=== PATIENT | male | born 1935 | race Two or more races ===

== ENCOUNTER 2017-06-21 21:09 | Inpatient (IN) | payer OTHER ==
[~2017-06-21] VITALS: Ht 182.9 cm; Wt 106.6 kg
[~2017-06-21 21:09] MED LIST: ARICEPT10 MG; AVODART0.5 MG; CLOPIDOGREL BIS75 MG; COUMADIN5 MG PO; GLUCOPHAGE XR500 MG; HYZAAR 100-121 UDTAB; KEPPRA500 MG PO; METOPROLOL SUC100 MG; NAMENDA10 MG; RISPERDAL0.25 MG; SIMVASTATIN20 MG; ZOLOFT50 MG; ZoCOR 20MG TABLET PO
== END 2017-07-04 15:09 | DRG 872 ==
LOC: ER 21:09 → MEDJ 06-22 10:44 → MEDI 06-22 10:44 → MEDJ 06-22 17:49
PROC: B246ZZZ Ultrasonography of Right and Left Heart (ICD-10-PCS; 2017-06-22)
PROC: B345ZZZ Ultrasonography of Bilateral Common Carotid Arteries (ICD-10-PCS; 2017-06-22)
PROC: B348ZZZ Ultrasonography of Bilateral Internal Carotid Arteries (ICD-10-PCS; 2017-06-22)
PROC: 8E0ZXY6 Isolation (ICD-10-PCS; 2017-06-22)
PROC: B030ZZZ Magnetic Resonance Imaging (MRI) of Brain (ICD-10-PCS; 2017-06-22)
PROC: 4A00X4Z Measurement of Central Nervous Electrical Activity, External Approach (ICD-10-PCS; principal; 2017-06-23)
PROC: BR39ZZZ Magnetic Resonance Imaging (MRI) of Lumbar Spine (ICD-10-PCS; 2017-06-24)
PROC: B246ZZ4 Ultrasonography of Right and Left Heart, Transesophageal (ICD-10-PCS; 2017-07-02)
DX: A41.01 Sepsis due to Methicillin susceptible Staphylococcus aureus (principal); N39.0 Urinary tract infection, site not specified; I69.351 Hemiplegia and hemiparesis following cerebral infarction affecting right dominant side; G40.89 Other seizures; I50.30 Unspecified diastolic (congestive) heart failure; R41.82 Altered mental status, unspecified; G30.8 Other Alzheimer's disease; F02.80 Dementia in other diseases classified elsewhere, unspecified severity, without behavioral disturbance, psychotic disturbance, mood disturbance, and anxiety; E11.9 Type 2 diabetes mellitus without complications; I11.0 Hypertensive heart disease with heart failure; H10.33 Unspecified acute conjunctivitis, bilateral; I25.10 Atherosclerotic heart disease of native coronary artery without angina pectoris; R55 Syncope and collapse; B95.61 Methicillin susceptible Staphylococcus aureus infection as the cause of diseases classified elsewhere; M51.36 Other intervertebral disc degeneration, lumbar region; G25.0 Essential tremor; I65.23 Occlusion and stenosis of bilateral carotid arteries
CPT/HCPCS: 70544; 72148

== ENCOUNTER 2017-10-17 11:19 | Outpatient (CLI) | payer OTHER | END 2017-10-17 15:00 | disposition home or self-care (01) | LOC: MRI 11:19 | DX: G31.89 Other specified degenerative diseases of nervous system (principal); I67.89 Other cerebrovascular disease; R41.3 Other amnesia; R91.8 Other nonspecific abnormal finding of lung field | CPT/HCPCS: 70551 ==

== ENCOUNTER 2018-12-21 10:12 | Outpatient (CLI) | payer OTHER ==
[~2018-12-21 10:12] MED LIST changes: +ARICEPT10 MG PO; +HYZAAR 100-12.1 EACH; -HYZAAR 100-121 UDTAB; +KEFLEX500 MG PO; +OSEL75CA PO; +XOPENEX0.63 MG/3 IH
== END 2018-12-21 13:04 | disposition home or self-care (01) ==
LOC: SONOGRAMA 10:12
DX: R31.0 Gross hematuria (principal)

== ENCOUNTER 2019-04-09 16:51 | Inpatient (IN) | payer OTHER ==
[~2019-04-09] VITALS: Ht 172.7 cm; Wt 90.7 kg
[2019-04-09] MEDS ORDERED: LOSARTAN (17:35)
[2019-04-09] MEDS ORDERED: [UNRECOGNIZED DRUG - OTHER] (17:36)
[2019-04-14] MEDS ORDERED: LOSARTAN POTASS50 MG PO (11:24)
[2019-04-14] MEDS ORDERED: AMLODIPINE BESYL5 MG PO (11:24)
[2019-04-14] MEDS ORDERED: KEPPRA500 MG PO (11:25)
[2019-04-14] MEDS ORDERED: VITAMIN B-121000 MCG PO (11:25)
[2019-04-14] MEDS ORDERED: TAMS0.4C PO (11:26)
== END 2019-04-14 17:39 | disposition home health service (06) | DRG 871 ==
LOC: ER 16:51 → MEDI 04-10 11:13 → SURH 04-10 11:13 → SEC-K 04-10 11:13 → SURH 04-10 15:26 → MEDI 04-12 16:37
PROVIDERS: ADMIT Internal Medicine Cardiovascular Disease
PROC: BW40ZZZ Ultrasonography of Abdomen (ICD-10-PCS; principal; 2019-04-10)
PROC: 0T9B70Z Drainage of Bladder with Drainage Device, Via Natural or Artificial Opening (ICD-10-PCS; 2019-04-10)
DX: A41.9 Sepsis, unspecified organism (principal); I50.23 Acute on chronic systolic (congestive) heart failure; N39.0 Urinary tract infection, site not specified; I69.351 Hemiplegia and hemiparesis following cerebral infarction affecting right dominant side; Q61.02 Congenital multiple renal cysts; G30.0 Alzheimer's disease with early onset; F02.80 Dementia in other diseases classified elsewhere, unspecified severity, without behavioral disturbance, psychotic disturbance, mood disturbance, and anxiety; I25.10 Atherosclerotic heart disease of native coronary artery without angina pectoris; I11.0 Hypertensive heart disease with heart failure; R31.0 Gross hematuria; E11.9 Type 2 diabetes mellitus without complications; Z79.4 Long term (current) use of insulin

== ENCOUNTER 2019-11-27 18:36 | Emergency (ER) | payer OTHER ==
[~2019-11-27] VITALS: Ht 172.7 cm; Wt 81.6 kg
[~2019-11-27 18:36] MED LIST changes: +AMLODIPINE BESYL5 MG PO; +LOSARTAN; +LOSARTAN POTASS50 MG PO; +TAMS0.4C PO; +VITAMIN B-121000 MCG PO; +[UNRECOGNIZED DRUG - OTHER]
[2019-11-27] MEDS ORDERED: NAMENDA5 MG (18:40)
[2019-11-27] MEDS ORDERED: HYZAAR 100-12.1 EACH (18:40)
== END 2019-11-27 22:32 | disposition home or self-care (01) ==
LOC: ER
DX: N30.81 Other cystitis with hematuria (principal); R10.84 Generalized abdominal pain

== ENCOUNTER 2024-01-07 16:20 | Inpatient (IN) | payer OTHER ==
[~2024-01-07] VITALS: Ht 182.9 cm; Wt 108.9 kg
[~2024-01-07 16:20] MED LIST changes: +AFRIN15 M1 NASAL; +CELEBREX100 MG PO; +FLONASE ALLERG9.9 ML NASAL; +LOSARTAN-HCTZ1 EAC2; +METOPROLOL SUCC25 MG; +NAMENDA5 MG; +SERTRALINE HCL50 MG
[2024-01-07] MEDS ORDERED: PLAVIX75 MG (16:29)
[2024-01-07] MEDS ORDERED: CHILDREN'S ASPI81 MG (16:29)
[2024-01-07] MEDS ORDERED: GLUMETZA500 MG (16:29)
[2024-01-07] MEDS ORDERED: 0.9 % SODIUM CHLORIDE 1,000 ML IV SCH ×2 (16:45→19:30)
[2024-01-07 17:05] LABS: HEMATOCRIT 30.1 % (39.0-48.0); HEMOGLOBIN 10.3 g/dL (13-16.00); MEAN CORPUSCULAR HEMOGLOBIN 30.6 pg (27.00-32.0); PLATELET COUNT 223 K/uL (150-450); RED BLOOD COUNT 3.35 M/uL (4.00-6.00); RED CELL DISTRIBUTION WIDTH 15.5 % (11.5-14.5)
[2024-01-07 17:29] LABS: INR 1.06; PARTIAL THROMBOPLASTIN TIME 25.1 SECONDS (22.0-34.0); PROTHROMBIN TIME 11.1 SECONDS (9.0-11.5)
[2024-01-07 17:33] LABS: ALBUMIN 2.6 gm/dL (3.4-5.0); BILIRUBIN TOTAL 0.22 mg/dL (0.3-1.2); BILIRUBIN,CONJUGATED 0.1 mg/dL (0.0-0.2); BILIRUBIN,UNCONJUGATED 0.12 mg/dL (0.0-0.6); CALCIUM 9.9 mg/dL (8.5-10.1); CREATININE SERUM 3.2 mg/dL (0.70-1.30); GFR 18.38; POTASSIUM 5.18 mEq/L (3.5-5.1); TOTAL PROTEIN 7.6 gm/dL (6.4-8.2)
[2024-01-07 18:14] LABS: PH,URINE 6.5 (5.0-8.0); URINE APPEARANCE Cloudy; URINE BILIRRUBIN Negative (NEGATIVE); URINE BLOOD Large; URINE COLOR Yellow; URINE GLUCOSE Negative (NEGATIVE); URINE KETONE Negative (NEGATIVE); URINE LEUKOCYTE Moderate; URINE NITRATE Negative; URINE UROBILINOGEN 0.2 E.U./dl
[2024-01-07 18:15] LABS: URINE EPITHELIAL CELLS 4.1 uL (0.0-38.8); URINE WBC 269.3 uL (0.0-23.2)
[2024-01-07 18:23] LABS: URINE CAST 0.61 uL (0.0-1.40); URINE PROTEIN 100 (NEGATIVE)
[2024-01-07] MEDS ORDERED: IPRATROPIUM BROMIDE 0.5 MG/2.5 ML AMPUL.NEB IH SCH (19:27)
[2024-01-07] MEDS ORDERED: PIPERACILLIN/TAZOBACTAM SODIUM 2.25 GM in 0.9 % SODIUM CHLORIDE 50 ML IV SCH (19:29)
[2024-01-07] MEDS ORDERED: CEFTRIAXONE SODIUM 1,000 MG VIAL IV ONE (19:30)
[2024-01-07] MEDS ORDERED: INSULIN LISPRO 1,000 UNIT/10 ML UNITS SUBCUTANEO PRN (19:30)
[2024-01-07] MEDS ORDERED: ACETAMINOPHEN 500 MG GEL..CAP PO PRN (19:30)
[2024-01-07] MEDS ORDERED: DEXTROSE 50 % IN WATER 0.5 G/ML DISP.SYRIN IV PRN (19:30)
[2024-01-07] MEDS ORDERED: CEFTRIAXONE SODIUM 1,000 MG VIAL ONE (19:31)
[2024-01-07] MEDS ORDERED: 0.9 % SODIUM CHLORIDE 500 ML IV ONE (19:45)
[2024-01-07] MEDS ORDERED: LACTULOSE 10 G/15 ML ML PO ONE (19:45)
[2024-01-07] MEDS ORDERED: ONDANSETRON HCL 4 MG in 0.9 % SODIUM CHLORIDE 50 ML IV PRN (19:45)
[2024-01-07 20:50] LABS: MAGNESIUM 2.4 mg/dL (1.8-2.4); PHOSPHOROUS 3.3 mg/dL (2.5-4.9)
[2024-01-07 20:58] LABS: C-REACTIVE PROTEIN 5.69 MG/DL (0.00-0.29)
[2024-01-07 21:54] LABS: ABG PH 7.437 (7.35-7.45); ABG PO2 79.6 mmHg (80-100); ABG pCO2 30.4 mmHg (35-45); BASE EXCESS -2.9 mmol/l; Tco2 20.9 mmol/l; allen test SATISFACTORY; o2 21 %; puncture site RADIAL LEFT
[2024-01-08] MEDS ORDERED: ENALAPRILAT DIHYDRATE 1.25 MG/ML VIAL IV PRN (02:15)
[2024-01-08 04:59] LABS: CALCIUM 9.6 mg/dL (8.5-10.1); CREATININE SERUM 2.67 mg/dL (0.70-1.30); GFR 22.65; POTASSIUM 4.52 mEq/L (3.5-5.1)
[2024-01-08] MEDS ORDERED: ASPIRIN 81 MG TAB.CHEW PO SCH (09:00)
[2024-01-08] MEDS ORDERED: FAMOTIDINE/PF 20 MG in 0.9 % SODIUM CHLORIDE 8 ML IV PUSH SCH (09:00)
[2024-01-08] MEDS ORDERED: LevETIRAcetam 500 MG TAB. PO SCH (09:00)
[2024-01-08] MEDS ORDERED: CLOPIDOGREL BISULFATE 75 MG TABLET PO SCH (09:00)
[2024-01-08] MEDS ORDERED: SODIUM CHLORIDE 0.45 % 1,000 ML IV SCH (15:30)
[2024-01-08] MEDS ORDERED: hydrALAZINE HCL 20 MG VIAL IV PRN (15:45)
[2024-01-08] MEDS ORDERED: DONEPEZIL HCL 10 MG TABLET PO SCH (17:00)
[2024-01-08] MEDS ORDERED: DOXYCYCLINE HYCLATE 100MG IV SCH (21:00)
[2024-01-09 04:56] LABS: HEMATOCRIT 30.3 % (39.0-48.0); HEMOGLOBIN 10.3 g/dL (13-16.00); MEAN CELL VOLUME 87.6 fL (80.0-100.00); MEAN CORPUSCULAR HEMOGLOBIN 29.7 pg (27.00-32.0); MEAN CORPUSCULAR HGB CONC 33.9 g/dl (32.0-36.0); PLATELET COUNT 205 K/uL (150-450); RED BLOOD COUNT 3.45 M/uL (4.00-6.00); RED CELL DISTRIBUTION WIDTH 15.6 % (11.5-14.5)
[2024-01-09 05:17] LABS: ALBUMIN 2.3 gm/dL (3.4-5.0); CALCIUM 9.4 mg/dL (8.5-10.1); GFR 33.96; PHOSPHOROUS 2.8 mg/dL (2.5-4.9); POTASSIUM 3.87 mEq/L (3.5-5.1)
[2024-01-09 05:21] LABS: CALCIUM 9.5 mg/dL (8.5-10.1); CREATININE SERUM 1.88 mg/dL (0.70-1.30); GFR 33.54; POTASSIUM 3.91 mEq/L (3.5-5.1)
[2024-01-09 05:23] LABS: CREATININE SERUM 1.9 mg/dL (0.70-1.30)
[2024-01-09 06:31] LABS: MYCOPLASMA PNEUMONIAE IGM NON REACTIVE (NO REACTIVE)
[2024-01-09] MEDS ORDERED: DEXTROSE 5 % IN WATER 1,000 ML IV SCH (07:15)
[2024-01-09] MEDS ORDERED: METOPROLOL SUCCINATE 50 MG TAB.SR.24H PO SCH (09:00)
[2024-01-10 08:04] LABS: ALBUMIN 2.4 gm/dL (3.4-5.0); CALCIUM 9.4 mg/dL (8.5-10.1); CREATININE SERUM 1.41 mg/dL (0.70-1.30); GFR 47.33; PHOSPHOROUS 2.7 mg/dL (2.5-4.9); POTASSIUM 3.26 mEq/L (3.5-5.1)
[2024-01-10 08:08] LABS: CALCIUM 9.5 mg/dL (8.5-10.1); CREATININE SERUM 1.38 mg/dL (0.70-1.30); GFR 48.52; POTASSIUM 3.31 mEq/L (3.5-5.1)
[2024-01-10] MEDS ORDERED: POTASSIUM CHLORIDE IN WATER 100 ML IV SCH (09:00)
[2024-01-10] MEDS ORDERED: hydrALAZINE HCL 25 MG TABLET PO SCH (09:00)
[2024-01-10] MEDS ORDERED: DIPHENHYDRAMINE HCL 50 MG/ML VIAL 1ML IV PRN (18:00)
[2024-01-10] MEDS ORDERED: PIPERACILLIN/TAZOBACTAM SODIUM 3.375 GM in DEXTROSE 5 % IN WATER 100 ML IV SCH (18:00)
[2024-01-11 07:45] LABS: CALCIUM 9.3 mg/dL (8.5-10.1); CREATININE SERUM 1.11 mg/dL (0.70-1.30); GFR 62.37; MAGNESIUM 1.5 mg/dL (1.8-2.4); POTASSIUM 3.69 mEq/L (3.5-5.1)
[2024-01-11] MEDS ORDERED: MAGNESIUM SULFATE IN WATER 50 ML IV NR (10:30)
[2024-01-11] MEDS ORDERED: LevETIRAcetam 500 MG TAB. PO SCH (17:00)
[2024-01-12 06:52] LABS: CALCIUM 9.2 mg/dL (8.5-10.1); CREATININE SERUM 0.92 mg/dL (0.70-1.30); GFR 77.46; POTASSIUM 3.75 mEq/L (3.5-5.1)
[2024-01-12] MEDS ORDERED: FAMOTIDINE/PF 20 MG/2 ML VIAL ONE (08:18)
[2024-01-12] MEDS ORDERED: LACTULOSE 20 G/30 ML BLIST.PACK PO SCH (09:00)
[2024-01-12 11:10] LABS: ABG PH 7.488 (7.35-7.45); ABG PO2 94.5 mmHg (80-100); ABG pCO2 26.8 mmHg (35-45); BASE EXCESS -1.9 mmol/l; BICARBONATE 19.9 mmol/l (23-25); SaO2 97.9 %; Tco2 20.7 mmol/l; allen test SATISFACTORY; o2 21 %; puncture site RADIAL RIGHT
[2024-01-12] MEDS ORDERED: MEMANTINE HCL 10 MG TABLET PO SCH (12:00)
[2024-01-12 12:12] LABS: HEMOGLOBIN 9.9 g/dL (13-16.00); MEAN CELL VOLUME 87.4 fL (80.0-100.00); MEAN CORPUSCULAR HEMOGLOBIN 29.9 pg (27.00-32.0); MEAN CORPUSCULAR HGB CONC 34.2 g/dl (32.0-36.0); PLATELET COUNT 236 K/uL (150-450); RED BLOOD COUNT 3.32 M/uL (4.00-6.00); RED CELL DISTRIBUTION WIDTH 15.1 % (11.5-14.5)
[2024-01-12] MEDS ORDERED: DOXYCYCLINE HYCLATE 100 MG CAPSULE PO SCH (21:00)
[2024-01-12] MEDS ORDERED: FAMOTIDINE/PF 20 MG in 0.9 % SODIUM CHLORIDE 8 ML IV PUSH SCH (21:00)
[2024-01-13] MEDS ORDERED: GUAIFENESIN 200 MG/10 ML BLIST.PACK PO SCH (07:28)
[2024-01-13] MEDS ORDERED: LACTULOSE 20 G/30 ML BLIST.PACK PO NR (08:36)
[2024-01-13] MEDS ORDERED: MAGNESIUM HYDROXIDE 30 ML BLIST.PACK PO NR (08:37)
[2024-01-13] MEDS ORDERED: MINERAL OIL 30 ML BLIST.PACK PO NR (08:37)
[2024-01-13] MEDS ORDERED: NA PHOS,M-B/NA PHOS,DI-BA 1 BOTTLE ENEMA RECTAL SCH (09:00)
[2024-01-13] MEDS ORDERED: IPRATROPIUM BROMIDE 0.5 MG/2.5 ML AMPUL.NEB IH SCH (09:00)
[2024-01-13 14:13] LABS: ABG PH 7.449 (7.35-7.45); ABG pCO2 31.2 mmHg (35-45)
[2024-01-13 14:14] LABS: ABG PO2 84.8 mmHg (80-100); BASE EXCESS -1.8 mmol/l; BICARBONATE 21.1 mmol/l (23-25); SaO2 96.6 %; Tco2 22.1 mmol/l; allen test SATISFACTORY; o2 21 %; puncture site RADIAL RIGHT
[2024-01-14] MEDS ORDERED: MINERAL OIL 30 ML BLIST.PACK PO SCH (11:20)
[2024-01-14] MEDS ORDERED: MAGNESIUM HYDROXIDE 30 ML BLIST.PACK PO SCH (11:21)
[2024-01-16 06:39] LABS: HEMATOCRIT 23.7 % (39.0-48.0); MEAN CORPUSCULAR HGB CONC 34.3 g/dl (32.0-36.0); PLATELET COUNT 263 K/uL (150-450); RED CELL DISTRIBUTION WIDTH 14.8 % (11.5-14.5)
[2024-01-16 06:50] LABS: HEMOGLOBIN 8.1 g/dL (13-16.00)
[2024-01-16 07:10] LABS: ALBUMIN 1.9 gm/dL (3.4-5.0); BILIRUBIN TOTAL 0.32 mg/dL (0.3-1.2); CALCIUM 8.5 mg/dL (8.5-10.1); CREATININE SERUM 1.18 mg/dL (0.70-1.30); GFR 58.12; GLOBULINA 3.3 G/DL (2.4-3.5); POTASSIUM 4.53 mEq/L (3.5-5.1); TOTAL PROTEIN 5.2 gm/dL (6.4-8.2)
[2024-01-16] MEDS ORDERED: LACTULOSE 20 G/30 ML BLIST.PACK PO SCH (17:00)
[2024-01-16 21:58] LABS: ob POSITIVE (NEGATIVE)
[2024-01-17] MEDS ORDERED: NA PHOS,M-B/NA PHOS,DI-BA 1 BOTTLE ENEMA RECTAL NR (11:45)
[2024-01-18 07:26] LABS: MEAN CORPUSCULAR HGB CONC 35.3 g/dl (32.0-36.0); PLATELET COUNT 298 K/uL (150-450); RED BLOOD COUNT 2.68 M/uL (4.00-6.00); RED CELL DISTRIBUTION WIDTH 14.8 % (11.5-14.5)
[2024-01-18 07:41] LABS: HEMOGLOBIN 8.1 g/dL (13-16.00); MEAN CORPUSCULAR HEMOGLOBIN 30.2 pg (27.00-32.0)
[2024-01-18 07:42] LABS: CALCIUM 8.7 mg/dL (8.5-10.1); CREATININE SERUM 0.98 mg/dL (0.70-1.30); GFR 72.02; POTASSIUM 3.47 mEq/L (3.5-5.1)
[2024-01-18] MEDS ORDERED: POTASSIUM CHLORIDE 20MEQ/100ML H2O PB IV NR (11:08)
[2024-01-19 07:00] LABS: CALCIUM 8.5 mg/dL (8.5-10.1); CREATININE SERUM 0.81 mg/dL (0.70-1.30); GFR 89.72
[2024-01-19 07:02] LABS: POTASSIUM 3.72 mEq/L (3.5-5.1)
[2024-01-19] MEDS ORDERED: NA PHOS,M-B/NA PHOS,DI-BA 1 BOTTLE ENEMA RECTAL SCH (09:00)
[2024-01-19] MEDS ORDERED: MINERAL OIL 30 ML BLIST.PACK PO SCH (09:00)
[2024-01-19] MEDS ORDERED: PIPERACILLIN/TAZOBACTAM SODIUM 3.375 GM in DEXTROSE 5 % IN WATER 100 ML IV SCH (18:00)
[2024-01-20] MEDS ORDERED: DEXTROSE 5%-WATER 100ML IV.SOLN ONE (06:46)
[2024-01-20] MEDS ORDERED: LACTOBACILLUS ACIDOPHILUS 1 CAP CAP PO SCH (17:00)
[2024-01-21 09:12] LABS: MEAN CORPUSCULAR HGB CONC 35.6 g/dl (32.0-36.0); PLATELET COUNT 284 K/uL (150-450); RED BLOOD COUNT 2.58 M/uL (4.00-6.00); RED CELL DISTRIBUTION WIDTH 15.2 % (11.5-14.5)
[2024-01-21 09:30] LABS: HEMATOCRIT 22.5 % (39.0-48.0)
[2024-01-21] MEDS ORDERED: TAMSULOSIN HCL 0.4 MG CAP PO SCH (15:16)
[2024-01-21 15:30] LABS: MEAN CELL VOLUME 86.8 fL (80.0-100.00); MEAN CORPUSCULAR HGB CONC 34.2 g/dl (32.0-36.0); PLATELET COUNT 263 K/uL (150-450); RED BLOOD COUNT 2.65 M/uL (4.00-6.00); RED CELL DISTRIBUTION WIDTH 15.7 % (11.5-14.5)
[2024-01-21 15:58] LABS: MEAN CORPUSCULAR HEMOGLOBIN 29.8 pg (27.00-32.0)
[2024-01-21 16:01] LABS: HEMOGLOBIN 7.9 g/dL (13-16.00)
[2024-01-22 09:33] LABS: HEMATOCRIT 25.8 % (39.0-48.0); MEAN CELL VOLUME 86.5 fL (80.0-100.00); MEAN CORPUSCULAR HEMOGLOBIN 30.2 pg (27.00-32.0); PLATELET COUNT 246 K/uL (150-450); RED BLOOD COUNT 2.99 M/uL (4.00-6.00); RED CELL DISTRIBUTION WIDTH 15.5 % (11.5-14.5)
[2024-01-22 10:14] LABS: ALBUMIN 1.9 gm/dL (3.4-5.0); BILIRUBIN TOTAL 0.52 mg/dL (0.3-1.2); CALCIUM 8.9 mg/dL (8.5-10.1); CREATININE SERUM 0.53 mg/dL (0.70-1.30); GFR 146.38; GLOBULINA 3.4 G/DL (2.4-3.5); POTASSIUM 3.91 mEq/L (3.5-5.1); TOTAL PROTEIN 5.3 gm/dL (6.4-8.2)
[2024-01-24] MEDS ORDERED: POLYETHYLENE GLYCOL 3350 17 GM BLIST.PACK PO SCH (09:00)
[2024-01-25 18:38] LABS: HEMATOCRIT 26.8 % (39.0-48.0); HEMOGLOBIN 9.2 g/dL (13-16.00); MEAN CELL VOLUME 86.8 fL (80.0-100.00); MEAN CORPUSCULAR HEMOGLOBIN 29.8 pg (27.00-32.0); MEAN CORPUSCULAR HGB CONC 34.3 g/dl (32.0-36.0); PLATELET COUNT 180 K/uL (150-450); RED BLOOD COUNT 3.09 M/uL (4.00-6.00); RED CELL DISTRIBUTION WIDTH 16.2 % (11.5-14.5)
== END 2024-01-26 15:03 | disposition home or self-care (01) | DRG 178 ==
LOC: ER 16:20 → SEC-K 19:55 → MEDI 19:55 → SURH 20:42 → MEDI 21:08
PROVIDERS: General Practice; Internal Medicine; Internal Medicine Critical Care Medicine; Internal Medicine Infectious Disease; Internal Medicine Nephrology; ADMIT Internal Medicine; ATTEND Internal Medicine
PROC: BB24ZZZ Computerized Tomography (CT Scan) of Bilateral Lungs (ICD-10-PCS; principal; 2024-01-07)
PROC: BB24ZZZ Computerized Tomography (CT Scan) of Bilateral Lungs (ICD-10-PCS; 2024-01-07)
PROC: 3E0F7GC Introduction of Other Therapeutic Substance into Respiratory Tract, Via Natural or Artificial Opening (ICD-10-PCS; 2024-01-07)
PROC: BT4JZZZ Ultrasonography of Kidneys and Bladder (ICD-10-PCS; 2024-01-12)
PROC: 30233N1 Transfusion of Nonautologous Red Blood Cells into Peripheral Vein, Percutaneous Approach (ICD-10-PCS; 2024-01-21)
DX: J69.0 Pneumonitis due to inhalation of food and vomit (principal); E87.0 Hyperosmolality and hypernatremia; N17.8 Other acute kidney failure; N39.0 Urinary tract infection, site not specified; K92.2 Gastrointestinal hemorrhage, unspecified; E86.0 Dehydration; K59.09 Other constipation; R33.9 Retention of urine, unspecified; R09.02 Hypoxemia; I10 Essential (primary) hypertension; E11.9 Type 2 diabetes mellitus without complications; Z79.4 Long term (current) use of insulin; R13.19 Other dysphagia; G30.9 Alzheimer's disease, unspecified; F02.80 Dementia in other diseases classified elsewhere, unspecified severity, without behavioral disturbance, psychotic disturbance, mood disturbance, and anxiety; Z87.891 Personal history of nicotine dependence